=== PATIENT | male | born 1930 | race Caucasian/White ===

== ENCOUNTER 2020-12-26 19:13 | Emergency (ER) | payer OTHER, MEDICARE ==
[~2020-12-26] VITALS: Ht 182.9 cm; Wt 79.4 kg
[2020-12-26] MEDS ORDERED: LIPITOR20 MG PO (19:27)
[2020-12-26] MEDS ORDERED: FLOMAX0.4 MG PO (19:28)
[2020-12-26] MEDS ORDERED: ADULT ASPIRIN R81 MG PO (19:28)
== END 2020-12-26 20:39 | disposition home or self-care (01) ==
LOC: ED 19:13
DX: S01.511A Laceration without foreign body of lip, initial encounter (principal); W18.30XA Fall on same level, unspecified, initial encounter; I25.2 Old myocardial infarction; E11.9 Type 2 diabetes mellitus without complications; E78.5 Hyperlipidemia, unspecified; K21.9 Gastro-esophageal reflux disease without esophagitis; Z79.899 Other long term (current) drug therapy; Z79.82 Long term (current) use of aspirin
CPT/HCPCS: 99283